=== PATIENT | female | born 1980 | race Caucasian/White ===

== ENCOUNTER 2017-11-02 14:00 | Inpatient (IN) ==
[2017-11-02] MEDS ORDERED: NS 1,000 ML IV ONE ×2 (14:16→15:44)
[2017-11-02] MEDS ORDERED: CEFEPIME 1 GM in NS 100 ML IV ONE (14:16)
--- NOTE | 2017-11-02 14:21 | Emergency Department Report ---
General Adult HPI - General Chief complaint: Back Pain/Injury Stated complaint: back pain Time Seen by Provider: 11/02/17 14:15 Source: patient, family, EMS Mode of arrival: EMS Limitations: physical limitation - History of Present Illness HPI narrative: Patient is a 37-year-old female history of cerebral palsy. Patient lives at home with her parents or caregivers. Patient presents to the ER for evaluation of fever, hypotension, severe back pain, nausea, vomiting. Patient has been in her usual state of good health, today was complaining of some back pain also had some nausea and vomiting. Patient was helped back to bed by her family then suddenly complained of severe back pain and at that point became fairly nonverbal. EMS was called patient was brought to the ER for evaluation on arrival patient's temperature of 103.0 - Related Data Home Medications Medication Instructions Recorded Confirmed Divalproex Sodium [Depakote] 500 mg PO HS #4.5 09/23/11 11/02/17 Levothyroxine Tab [Synthroid] 75 mcg PO DAILY #0 09/23/11 11/02/17 Fenofibrate [Lipofen] 150 mg PO WS #1 cap 08/30/13 11/02/17 Baclofen [Lioresal] 20 mg PO HS 11/02/17 11/02/17 Baclofen [Lioresal] 40 mg PO QAM 11/02/17 11/02/17 LORazepam [Ativan] 1 mg PO TID PRN 11/02/17 11/02/17 Lacosamide [Vimpat] 200 mg PO BID 11/02/17 11/02/17 Loratadine [Claritin] 10 mg PO QAM 11/02/17 11/02/17 Naproxen 500 mg PO BID 11/02/17 11/02/17 Niacin [Niacin ER] 1,000 mg PO WS 11/02/17 11/02/17 Omeprazole 40 mg PO QAM 11/02/17 11/02/17 Psyllium Husk [Fiber Laxative] 0.52 gm PO BID 11/02/17 11/02/17 Quetiapine [Seroquel] 50 mg PO HS 11/02/17 11/02/17 Sertraline [Zoloft] 200 mg PO QAM 11/02/17 11/02/17 levETIRAcetam [Keppra] 2,000 mg PO BID 11/02/17 11/02/17 Previous Rx's Medication Instructions Recorded Ferrous Sulfate [Slow Fe] 142 mg PO BIDWM #60 tablet.er 11/08/17 Levofloxacin Pb [Levaquin 750 mg 750 mg PO Q24H #3 tab 11/08/17 Premix] Allergies Allergy/AdvReac Type Severity Reaction Status Date / Time No Known Allergies Allergy Verified 11/02/17 14:33 Review of Systems Constitutional: Reports: fever. Denies: chills, weakness Eyes: Denies: eye pain, eye discharge, vision change Cardiovascular: Denies: chest pain, palpitations, dyspnea on exertion Respiratory: Denies: cough, dyspnea, wheezes Gastrointestinal: Reports: nausea, vomiting. Denies: abdominal pain Genitourinary: Denies: dysuria, frequency Musculoskeletal: Reports: back pain Neurological: Denies: headache PFSH Patient Stated Medical History Seizures Yes - Social History Smoking status: Never smoker Substance use type: does not use Alcohol intake frequency: does not drink Physical Exam - Limitations Limitations: altered mental status - General General appearance: alert, in distress - Head Head exam: normocephalic - Eye Eye exam: Present: PERRL - ENT ENT exam: Present: normal oropharynx, mucous membranes moist, TM's normal bilaterally - Chest Chest inspection: Present: symmetric chest wall rise. Absent: tenderness - Respiratory Respiratory exam: Present: crackles. Absent: respiratory distress, wheezes, stridor - Cardiovascular Cardiovascular exam: Present: normal rhythm, tachycardia, normal heart sounds - Abdominal Exam Abdominal exam: Present: soft, normal bowel sounds. Absent: distention, tenderness - Skin Skin exam: Present: warm, dry Course Vital Signs Temperature 103.2 F H 11/02/17 14:00 Pulse Rate 133 H 11/02/17 14:00 Respiratory Rate 25 H 11/02/17 14:00 Blood Pressure 152/76 H 11/02/17 14:00 Pulse Oximetry 88 L 11/02/17 14:00 Temperature 98.2 F 11/08/17 16:00 Pulse Rate 95 11/08/17 16:00 Respiratory Rate 18 11/08/17 16:00 Blood Pressure 165/105 H 11/08/17 16:00 Pulse Oximetry 95 11/08/17 16:00 Medical Decision Making - MDM Narrative Medical decision making narrative: Patient with fever, tachycardia low white count episode of hypotension, CONSISTENT with severe sepsis, also hydronephrosis did kidney stone and possible aspiration pneumonia Was able to contact Dr. Hartmannwho would be able to stent patient tomorrow for her kidney stone Discussed with Dr. Reyes, primary medical physician, patient is received cefepime in the emergency department, fluid resuscitation. He will admit patient to the CCU, he is aware that Dr. Hartmann will be available tomorrow for the kidney stone - Medical Records Medical records reviewed: Yes: I reviewed the patient's medical records. - Lab Data Lab results reviewed: Yes: I reviewed the patient's lab results. Result diagrams: 11/08/17 04:18 11/08/17 04:18 Lab Results 11/02/17 11/02/17 11/02/17 Range/Units 14:30 14:30 14:39 WBC 1.4 L* (4.5-11.0) T/MM3 RBC 4.63 (4.00-5.20) M/MM3 Hgb 10.8 L (12-16) GM/DL Hct 34.9 L (36-46) % MCV 75.4 L (80-100) UM3 MCH 23.3 L (26-34) UUG MCHC 30.9 L (31-37) GM/DL RDW Std Deviation 42.2 (36.9-50.2) FL Plt Count 138 (130-400) T/MM3 MPV 10.0 (9.4-12.4) UM3 Immature Gran % (Auto) Not performed Neut % (Auto) Not performed Lymph % (Auto) Not performed [place] % (Auto) Not performed Eos % (Auto) Not performed Baso % (Auto) Not performed Neut # (Auto) Not performed Lymph # (Auto) Not performed [place] # (Auto) Not performed Eos # (Auto) Not performed Baso # (Auto) Not performed Abs Immat Gran (auto) Not performed Neutrophils % (Manual) 50.0 (33-66) % Band Neutrophils % 28.0 H (0-6) % Lymphocytes % (Manual) 18.0 L (23-45) % Monocytes % (Manual) 4.0 (0-9.0) % Neutrophils # (Manual) 0.7 L (1.8-7.7) T/MM3 Band Neutrophils # 0.4 T/MM3 Lymphocytes # (Manual) 0.3 L (1-4.8) T/MM3 Monocytes # (Manual) 0.1 (0-0.8) T/MM3 Microcytosis 1+ RBC Morph Comment Abnormal Turbidity < 20 (0-20) Sodium 153 H (136-146) MEQ/L Potassium 4.1 (3.6-5) MEQ/L Chloride 108 H (98-107) MEQ/L Carbon Dioxide 18 L (22-30) MEQ/L Anion Gap 27 H (5-15) meq/L BUN 40.0 H (7-17) MG/DL Creatinine 1.9 H (0.7-1.2) mg/dL Estimated Creat Clear 35 (>50) mL/min GFR Calculation 30 (>60) mL/min BUN/Creatinine Ratio 21 (6-26) RATIO Glucose 187 H (65-110) MG/DL Calculated Osmolality 309 H (261-280) MOSM/KG Calcium 10.3 H (8.4-10.2) MG/DL Total Bilirubin 1.60 H (0.20-1.30) MG/DL Icterus Index < 2 (0-7) AST 60 H (14-36) U/L ALT 42 H (1-35) U/L Alkaline Phosphatase 75 (38-126) U/L Total Protein 9.1 H (6.3-8.2) g/dL Albumin 5.0 (3.5-5.0) g/dL Globulin 4.1 H (2.4-3.6) G/DL Albumin/Globulin Ratio 1.2 (1.1-2.2) RATIO Plasma Lactate 3.6 H (0.6-2.2) MMOL/L Specimen Hemolysis 26 H (0-25) Ur Collection Type Urine, cath straight Urine Color Yellow (YELLOW) Urine Clarity Sl cloudy Urine pH 5.0 (5.0-8.0) Ur Specific [place] >=1.030 H (1.015-1.025) Urine Protein 2+ A (NEGATIVE) Urine Glucose (UA) Negative (NEGATIVE) Urine Ketones Negative (NEGATIVE) Urine Occult Blood 2+ A (NEGATIVE) Urine Nitrate Negative (NEGATIVE) Urine Bilirubin 1+ A (NEGATIVE) Urine Urobilinogen 4.0 A (NORMAL) EU/DL Ur Leukocyte Esterase Trace A (NEGATIVE) Urine RBC 3-5 H (0-3) /HPF Urine WBC 1-3 (0-5) /HPF Ur Squamous Epith Cells 0-5 Amorphous Sediment Many Urine Bacteria 2+ H (NEGATIVE) Ur Culture Indicated? Cult not indicated Urine Test (Negative) 11/02/17 Range/Units 14:39 WBC (4.5-11.0) T/MM3 RBC (4.00-5.20) M/MM3 Hgb (12-16) GM/DL Hct (36-46) % MCV (80-100) UM3 MCH (26-34) UUG MCHC (31-37) GM/DL RDW Std Deviation (36.9-50.2) FL Plt Count (130-400) T/MM3 MPV (9.4-12.4) UM3 Immature Gran % (Auto) Neut % (Auto) Lymph % (Auto) [place] % (Auto) Eos % (Auto) Baso % (Auto) Neut # (Auto) Lymph # (Auto) [place] # (Auto) Eos # (Auto) Baso # (Auto) Abs Immat Gran (auto) Neutrophils % (Manual) (33-66) % Band Neutrophils % (0-6) % Lymphocytes % (Manual) (23-45) % Monocytes % (Manual) (0-9.0) % Neutrophils # (Manual) (1.8-7.7) T/MM3 Band Neutrophils # T/MM3 Lymphocytes # (Manual) (1-4.8) T/MM3 Monocytes # (Manual) (0-0.8) T/MM3 Microcytosis RBC Morph Comment Turbidity (0-20) Sodium (136-146) MEQ/L Potassium (3.6-5) MEQ/L Chloride (98-107) MEQ/L Carbon Dioxide (22-30) MEQ/L Anion Gap (5-15) meq/L BUN (7-17) MG/DL Creatinine (0.7-1.2) mg/dL Estimated Creat Clear (>50) mL/min GFR Calculation (>60) mL/min BUN/Creatinine Ratio (6-26) RATIO Glucose (65-110) MG/DL Calculated Osmolality (261-280) MOSM/KG Calcium (8.4-10.2) MG/DL Total Bilirubin (0.20-1.30) MG/DL Icterus Index (0-7) AST (14-36) U/L ALT (1-35) U/L Alkaline Phosphatase (38-126) U/L Total Protein (6.3-8.2) g/dL Albumin (3.5-5.0) g/dL Globulin (2.4-3.6) G/DL Albumin/Globulin Ratio (1.1-2.2) RATIO Plasma Lactate (0.6-2.2) MMOL/L Specimen Hemolysis (0-25) Ur Collection Type Urine Color (YELLOW) Urine Clarity Urine pH (5.0-8.0) Ur Specific [place] (1.015-1.025) Urine Protein (NEGATIVE) Urine Glucose (UA) (NEGATIVE) Urine Ketones (NEGATIVE) Urine Occult Blood (NEGATIVE) Urine Nitrate (NEGATIVE) Urine Bilirubin (NEGATIVE) Urine Urobilinogen (NORMAL) EU/DL Ur Leukocyte Esterase (NEGATIVE) Urine RBC (0-3) /HPF Urine WBC (0-5) /HPF Ur Squamous Epith Cells Amorphous Sediment Urine Bacteria (NEGATIVE) Ur Culture Indicated? Urine Test Negative (Negative) - Radiology Data Radiology results reviewed: Yes: I reviewed the patient's radiology results. CT lumbar spine: Large left-sided kidney stone with hydronephrosis Chest x-ray: Questionable aspiration pneumonitis right lower lobe Disposition Clinical Impression: Sepsis, Aspiration pneumonia [place]: [place] [facility] [place] Condition: Stable - Seen By: physician
[2017-11-02] MEDS ORDERED: MORPHINE SULFATE 4mg INJECTION IVP ONE (14:55)
[2017-11-02] MEDS: SALINE FLUSH 10ml SYRINGE IVF PRN (15:02)
--- NOTE | 2017-11-02 15:16 | XRay Report ---
Indication: fever possible aspiration sepsis PROCEDURE: XR chest 1V: Encounter: Initial Comparison: August 30, 2013 Findings: Chronic hypoinflation of the lungs. New airspace disease in the right lower lobe with increased linear markings. No gross pleural effusion or pneumothorax. Left-sided nerve stimulator device is new. Left-sided [employer] shunt catheter tubing again seen. Thoracolumbar spinal fixation rods are redemonstrated. Heart size is somewhat poorly evaluated due to the hypoinflation and patient rotation present. Mediastinal contours are grossly stable from the comparison. Pulmonary vascularity is not obviously enlarged. Impression: Right lower lobe airspace disease could be due to aspiration or pneumonia. .
--- NOTE | 2017-11-02 16:03 | CT Scan Report ---
Indication: fall, rods, question fracture PROCEDURE: CT lumbar spine wo con: Encounter: Initial Comparison: None Technique: Axial noncontrast CT imaging of the lumbar spine was performed with coronal and sagittal two-dimensional reformats. Automated Exposure Control and Iterative Reconstruction dose reducing techniques were utilized. FINDINGS: Severe scoliotic curvature is noted with extensive posterior spinal fusion rods. Mild diffuse bony demineralization. There is no acute lumbar fracture identified. Screws extend into the sacrum and iliac bones bilaterally. Significant metallic streak artifact. There is left hydronephrosis and hydroureter due to a stone or possibly two adjacent stones in the proximal ureter measuring 9 x 3 x 3 mm. This is at the L3 level. There is mild perinephric and periureteral stranding. High attenuation material seen at the L3 level in the epidural space and central canal. Partial osseous fusion across all lumbar disk spaces. Impression: Obstructing left proximal ureteral stones. No acute fracture. .
[2017-11-02] MEDS: NS 1,000 ML IV SCH (17:02)
[2017-11-02 18:15] VITALS: BMI 30.3
[2017-11-02] MEDS ORDERED: ONDANSETRON 4 MG/2 ML INJECTION IVP PRN (18:43)
[2017-11-02] MEDS ORDERED: PROMETHAZINE 25 MG INJECTION IVP PRN (18:44)
[2017-11-02] MEDS: MORPHINE SULFATE 2mg INJECTION IVP PRN ×2 (20:42→22:46)
[2017-11-02] MEDS ORDERED: LACOSAMIDE 100mg TABLET PO SCH (21:00)
[2017-11-02] MEDS ORDERED: LEVETIRACETAM 500 MG TABLET PO SCH (21:00)
[2017-11-02] MEDS ORDERED: LACOSAMIDE 200 MG in NS 50 ML IV SCH (21:00)
--- NOTE | 2017-11-02 21:04 | Internal Med History&Physical ---
Internal Medicine HPI Chief complaint: severe back pain with sepsis History of present illness: Leti is very pleasant 37-year-old white female with cerebral palsy. She lives at home with her parents and they function as her caregivers. Her father indicates that over the weekend she had a few episodes of dry heaves and abdominal cramping possibly consistent with gastroenteritis. However, this morning she was sitting at her computer and complained of sudden back pain. She wanted to lay down and her father helped her lie down and he went to massage her back where she said she hurt. At that point she had sudden and severe back pain. She was unable to respond verbally at that point and he called 911 and they transferred her to the ER. Upon arrival her temperature was greater than 103, her white count was below 2, she was in a significant metabolic acidosis with an elevated lactic acid level. Her blood pressure did drop to 86/63 at one point. She was given IV fluid bolus and started on cefepime 1 g IV. Urology was consulted, and she was admitted to the ICU. Review of Systems ROS unobtainable: other (provided by her parents) - Constitutional Constitutional: Present: fever(s), weakness - Gastrointestinal Gastrointestinal: Present: abdominal pain, nausea, vomiting. Absent: change in bowel habits, coffee ground emesis, constipation, diarrhea, dysphagia, hematemesis, hematochezia, melena - Neurological Neurological: Present: abnormal speech, convulsions (history of seizure disorder ) Neurological Comments: Cerebral palsy [facility] Patient Stated Medical History Seizures Yes - Social History Smoking status: Never smoker Substance use type: does not use Housing: house Medications Home Medications Medication Instructions Recorded Confirmed Type Divalproex Sodium [Depakote] 500 mg PO HS #4.5 09/23/11 11/02/17 History Levothyroxine Tab [Synthroid] 75 mcg PO DAILY #0 09/23/11 11/02/17 History Fenofibrate [Lipofen] 150 mg PO WS #1 cap 08/30/13 11/02/17 History Baclofen [Lioresal] 20 mg PO HS 11/02/17 11/02/17 History Baclofen [Lioresal] 40 mg PO QAM 11/02/17 11/02/17 History LORazepam [Ativan] 1 mg PO TID PRN 11/02/17 11/02/17 History Lacosamide [Vimpat] 200 mg PO BID 11/02/17 11/02/17 History Loratadine [Claritin] 10 mg PO QAM 11/02/17 11/02/17 History Naproxen 500 mg PO BID 11/02/17 11/02/17 History Niacin [Niacin ER] 1,000 mg PO WS 11/02/17 11/02/17 History Omeprazole 40 mg PO QAM 11/02/17 11/02/17 History Psyllium Husk [Fiber Laxative] 0.52 gm PO BID 11/02/17 11/02/17 History Quetiapine [Seroquel] 50 mg PO HS 11/02/17 11/02/17 History Sertraline [Zoloft] 200 mg PO QAM 11/02/17 11/02/17 History levETIRAcetam [Keppra] 2,000 mg PO BID 11/02/17 11/02/17 History Allergies Allergy/AdvReac Type Severity Reaction Status Date / Time No Known Allergies Allergy Verified 11/02/17 14:33 Exam Vital signs: Temperature 96.8 F 11/02/17 18:10 Pulse Rate 101 H 11/02/17 19:30 Respiratory Rate 34 H 11/02/17 20:42 Blood Pressure 131/86 11/02/17 19:30 Pulse Oximetry 97 11/02/17 19:30 - Constitutional obtunded - Routine HEENT Exam Head: Present: normocephalic, atraumatic Eye: Present: EOMI, PERRL ENT: Present: mucous membranes moist, oropharynx clear, nares patent Nose: moist mucous membranes - Routine Neck Exam Present: supple. Absent: carotid bruit, lymphadenopathy, thyromegaly - Routine Chest/Breast/Axilla Exam Chest wall: Absent: tenderness Axillae: Absent: lymphadenopathy - Routine Respiratory Exam Present: CTA bilaterally. Absent: rhonchi, wheezes, crackles - Routine Cardiovascular Exam Present: no murmur, tachycardia. Absent: S3, S4 - Routine Abdominal Exam Present: soft, normoactive bowel sounds. Absent: distended, rebound, guarding - Routine Extremities Exam Absent: cyanosis, clubbing, edema - Routine Skin Exam Present: intact. Absent: cyanosis, erythema, mottling, petechiae, urticaria, jaundice - Routine Neurological Exam Present: altered mental status. Absent: alert, oriented X3 - Routine Psychiatric Exam Present: agitated, unable to assess Internal Medicine Results - Labs CBC & Chem 7: 11/02/17 14:30 11/02/17 14:30 Labs: Short CBC 11/02/17 Range/Units 14:30 WBC 1.4 L* (4.5-11.0) T/MM3 Hgb 10.8 L (12-16) GM/DL Hct 34.9 L (36-46) % Plt Count 138 (130-400) T/MM3 BMP 11/02/17 14:30 Sodium 153 H Potassium 4.1 Chloride 108 H Carbon Dioxide 18 L BUN 40.0 H Creatinine 1.9 H Glucose 187 H Calcium 10.3 H Liver Function 11/02/17 Range/Units 14:30 Total Bilirubin 1.60 H (0.20-1.30) MG/DL AST 60 H (14-36) U/L ALT 42 H (1-35) U/L Alkaline Phosphatase 75 (38-126) U/L Albumin 5.0 (3.5-5.0) g/dL Urine 11/02/17 Range/Units 14:39 Urine Color Yellow (YELLOW) Urine Clarity Sl cloudy Urine pH 5.0 (5.0-8.0) Ur Specific [place] >=1.030 H (1.015-1.025) Urine Protein 2+ A (NEGATIVE) Urine Glucose (UA) Negative (NEGATIVE) - Imaging and Cardiology Chest x-ray Status: image reviewed by me Assessment and Plan - Assessment and Plan (1) Septic shock Current visit: Yes Status: Acute (2) Hydronephrosis Current visit: Yes Status: Acute (3) Cerebral palsy Current visit: Yes Status: Acute (4) Seizure disorder Current visit: Yes Status: Acute (5) Renal calculus Current visit: Yes Status: Acute (6) Mental status change Current visit: Yes Status: Acute (7) Elevated liver enzymes Current visit: Yes Status: Acute (8) Metabolic acidosis with increased anion gap and accumulation of organic acids Current visit: Yes Status: Acute - Assessment and Plan Patient is in the ICU. She has been started on IV fluid hydration with IV fluid boluses. Her lactic acid has already resolved. Her seizure medications have been changed to IV. Urology consultation for renal calculus management has been obtained. I will continue her on morphine for pain relief tonight.
[2017-11-02] MEDS: QUETIAPINE 50 MG TABLET PO SCH (21:21)
[2017-11-02] MEDS: BACLOFEN 20 MG TABLET PO SCH (21:21)
[2017-11-02] MEDS: DIVALPROEX 500 MG TABLET PO SCH (21:21)
[2017-11-02] MEDS ORDERED: CEFEPIME 1 GM in NS 100 ML IV SCH (22:00)
[2017-11-02] MEDS: LEVETIRACETAM IV SCH (22:24)
[2017-11-02] MEDS: NS IV SCH (22:24)
[2017-11-02] MEDS ORDERED: MORPHINE SULFATE 2mg INJECTION IVP ONE (23:20)
[2017-11-03] MEDS: CEFEPIME 2 GM in NS 100 ML IV SCH ×3 (00:04→15:11)
[2017-11-03] MEDS: MORPHINE SULFATE 2mg INJECTION IVP PRN ×3 (01:59→19:34)
[2017-11-03] MEDS: NS 1,000 ML IV SCH (03:08)
[2017-11-03] MEDS: OMEPRAZOLE 20 MG CAPSULE PO SCH (06:42)
[2017-11-03] MEDS ORDERED: IOHEXOL 300mg/ml 50ml INJECTION ONE (07:07)
[2017-11-03] MEDS ORDERED: PROPOFOL 500 MG/50 ML VIAL ONE (07:09)
--- NOTE | 2017-11-03 07:12 | Anesthesia Preoperative Report ---
Anesthesia Preoperative Record - Date and Time Date: 11/03/17 Preoperative Diagnosis: Sepsis Aspiration pneumonia right 9 mm stone left NPO Since Date: 11/02/17 NPO Since Time: 23:00 Allergies/Adverse Reactions: Allergies Allergy/AdvReac Type Severity Reaction Status Date / Time No Known Allergies Allergy Verified 11/02/17 14:33 - Vital Signs Vital Signs: Temperature 98.3 F 11/03/17 01:02 Pulse Rate 135 H 11/03/17 05:45 Respiratory Rate 22 11/03/17 06:12 Blood Pressure 124/73 11/03/17 05:45 Pulse Oximetry 94 11/03/17 05:45 Height and Weight: Height 4 ft 10 in Weight 65.9 kg Body Mass Index 30.3 - Medications Inpatient Medications: Current Medications Baclofen (Lioresal) 20 mg PO HS [facility] Last Admin: 11/02/17 21:21 Dose: Not Given Baclofen (Lioresal) 40 mg PO QAM AP Divalproex Sodium (Depakote) 500 mg PO [facility] Last Admin: 11/02/17 21:21 Dose: Not Given Sodium Chloride (Normal Saline) 1,000 mls @ 125 mls/hr IV .Q8H [facility] Last Infusion: 11/03/17 05:00 Dose: 125 mls/hr Cefepime HCl 2 gm/ Sodium (Chloride) 100 mls @ 200 mls/hr IV Q8H [facility] Last Infusion: 11/03/17 00:36 Dose: Infused Levetiracetam 2,000 mg/ Sodium (Chloride) 120 mls @ 400 mls/hr IV Q12H [facility] Last Infusion: 11/02/17 22:44 Dose: Infused Lacosamide 200 mg/ Sodium (Chloride) 70 mls @ 100 mls/hr IV Q12H [facility] Morphine Sulfate (Morphine Sulf 2 Mg Inj) 1 - 2 mg IVP Q2H PRN PRN Reason: Pain Last Admin: 11/03/17 06:12 Dose: 2 mg Omeprazole (Prilosec) 40 mg PO [facility] Last Admin: 11/03/17 06:42 Dose: Not Given Ondansetron HCl (Zofran) 4 mg IVP Q6H PRN PRN Reason: Nausea &/or vomiting Promethazine HCl (Phenergan Inj) 25 mg IVP Q6H PRN Quetiapine Fumarate (Seroquel) 50 mg PO [facility] Last Admin: 11/02/17 21:21 Dose: Not Given Sertraline HCl (Zoloft) 200 mg PO [facility] Sodium Chloride (Iv Flush) 10 - 80 ml IVF PRN PRN PRN Reason: Flushing Last Admin: 11/02/17 15:02 Dose: 20 ml Home Medications: Home Medications Medication Instructions Recorded Confirmed Type Divalproex Sodium [Depakote] 500 mg PO HS #4.5 09/23/11 11/02/17 History Levothyroxine Tab [Synthroid] 75 mcg PO DAILY #0 09/23/11 11/02/17 History Fenofibrate [Lipofen] 150 mg PO WS #1 cap 08/30/13 11/02/17 History Baclofen [Lioresal] 20 mg PO HS 11/02/17 11/02/17 History Baclofen [Lioresal] 40 mg PO QAM 11/02/17 11/02/17 History LORazepam [Ativan] 1 mg PO TID PRN 11/02/17 11/02/17 History Lacosamide [Vimpat] 200 mg PO BID 11/02/17 11/02/17 History Loratadine [Claritin] 10 mg PO QAM 11/02/17 11/02/17 History Naproxen 500 mg PO BID 11/02/17 11/02/17 History Niacin [Niacin ER] 1,000 mg PO WS 11/02/17 11/02/17 History Omeprazole 40 mg PO QAM 11/02/17 11/02/17 History Psyllium Husk [Fiber Laxative] 0.52 gm PO BID 11/02/17 11/02/17 History Quetiapine [Seroquel] 50 mg PO 11/02/17 11/02/17 History Sertraline [Zoloft] 200 mg PO QAM 11/02/17 11/02/17 History levETIRAcetam [Keppra] 2,000 mg PO BID 11/02/17 11/02/17 History Is Patient on Beta Marisol?: No - Medical History Respiratory: Reports: Pneumonia (possible) Cardiovascular: Reports: High Cholesterol Gastrointestional: DENIES: Gastroesophageal Reflux Disease Neuro/Musculoskeletal: Reports: Back Problems, Neuromuscular Disorder, Seizures (2 in last week, none since february before that) Other History: DENIES: Anesthesia Reactions - Surgical History Musculoskeletal Surgery/Tx: Reports: Other (hip, back) Anesthesia Reactions: None Hx Family Anesthesia Reaction: No History of Motion Sickness: No - Social History Smoking Status: Never smoker Substance Use Type: does not use - Pertinent Findings Laboratory: CBC and BMP 11/03/17 04:43 11/03/17 04:43 BMP 11/02/17 11/03/17 14:30 04:43 Sodium 153 H 151 H Potassium 4.1 3.3 L D Chloride 108 H 121 H D Carbon Dioxide 18 L 15 L BUN 40.0 H 40.0 H Creatinine 1.9 H 1.6 H D Glucose 187 H 136 H Calcium 10.3 H 7.6 L D Liver Function 11/02/17 11/03/17 Range/Units 14:30 04:43 Total Bilirubin 1.60 H 1.30 (0.20-1.30) MG/DL AST 60 H 40 H (14-36) U/L ALT 42 H 29 (1-35) U/L Alkaline Phosphatase 75 73 (38-126) U/L Albumin 5.0 3.5 (3.5-5.0) g/dL Urine 11/02/17 Range/Units 14:39 Urine Color Yellow (YELLOW) Urine Clarity Sl cloudy Urine pH 5.0 (5.0-8.0) Ur Specific [place] >=1.030 H (1.015-1.025) Urine Protein 2+ A (NEGATIVE) Urine Glucose (UA) Negative (NEGATIVE) EKG: Sinus Tachycardia - Airway Assessment Mallampati Score: III TMD: 3 Fingerbreadths Neck Extension: fair Overall Assessment: may be difficult mask vent, may be difficult intubation - ASA ASA Score: 3 - Plan Anesthesia: General Inhalation Gases - Discussion Discussion: Discussed risks/options/alternatives of anesthesia and questions answered. Patient consents. Nursing pain assessment noted. Present for Discussion: parent (father) Attestation Statement: Prior to the delivery of any anesthetic medication, I examined the patient, developed the plan, obtained the patient's consent and discussed the risk and benefits of the procedure with the patient/guardian. - Additional Information Seen by Anesthesia: Yes
[2017-11-03] MEDS ORDERED: IOHEXOL 300mg/ml 50ml INJECTION OPSITE ONE (07:30)
--- NOTE | 2017-11-03 08:53 | XRay Report ---
Indication: Septic PROCEDURE: XR chest 1V: Encounter: Initial Comparison: November 02, 2017 Findings: Lungs remain hypoinflated with slightly improved aeration of the right lower lobe and hazy bilateral airspace opacities remaining. No gross pneumothorax or large effusion. Cardiomediastinal contours are difficult to evaluate given the scoliosis and rotation present. Pulmonary vascularity is not overtly enlarged. Impression: Slightly improved aeration of the right lower lobe. .
[2017-11-03] MEDS ORDERED: NON-FORMULARY MEDICATION 1 EACH EACH (Omeprazole [Omeprazole] 40 MG) PO SCH (09:00)
--- NOTE | 2017-11-03 09:23 | Operative Note ---
DATE OF OPERATION 11/03/2017 PREOPERATIVE DIAGNOSIS 1. Left ureteral stone. 2. Left obstructive pyelonephritis. 3. Urosepsis. POSTOPERATIVE DIAGNOSIS 1. Left ureteral stone. 2. Left obstructive pyelonephritis. 3. Urosepsis. OPERATION PERFORMED 1. Cystoscopy. Left retrograde pyelogram. 2. Left stent placement. SURGEON Alex Hartmann MD COMPLICATIONS None DRAINS 6 x 24 left double-J stent RADIOLOGIC FINDINGS Left retrograde pyelogram showed left moderate hydronephrosis. INDICATIONS FOR THE PROCEDURE This is a 37-year-old female with cerebral palsy who was admitted to [facility] last night for urosepsis. Imaging showed a 9 mm left obstructing ureteral stone with stranding around her kidney. I discussed the options with her father this morning and he elected to go to the operating room to place a stent. DESCRIPTION OF THE PROCEDURE Patient was identified in the preoperative holding area. The procedure was explained to her father and he agreed to proceed. She was taken back to the operating room where she was placed supine on the operating room table. General anesthesia was induced. She was then placed in the dorsal lithotomy position. Her genitalia were prepped and draped in the usual fashion. At this time, a formal time-out was done, all the persons in the room were in agreement. I began the procedure by introducing a rigid cystoscope inside the bladder. Upon entry to the bladder, I identified the two ureteral orifices that were orthotopic in position. A wire was placed in the left ureteral orifice and under fluoro guidance, advanced to the level of the left kidney. I then placed a 5-Afghan over the wire and advanced it to the level of the left kidney. Once I was in the left kidney, I removed the wire and I aspirated about 10 mL of purulent urine from the left kidney. This was sent for culture. I then shot a left retrograde pyelogram that showed moderate left hydronephrosis. The wire was then replaced in the kidney. The 5-Afghan was removed. A 6 x 24 double-J stent was placed over the wire under fluoro guidance and was advanced to the level of the left kidney. I then removed the wire and observed a nice curl of the stent in the kidney and in the bladder. I noted efflux of significant amount of pus from the stent at the end of the procedure. A 16-Afghan Jacobsen was placed in the bladder. This concluded the procedure. DISPOSITION Patient will be transferred back to the ICU. She will need definitive treatment for her stone once she recovers from the infection, in 2-3 weeks. JERMAN
[2017-11-03] MEDS ORDERED: 1/2 NS with KCL 20mEq 1,000 ML IV SCH (09:30)
--- NOTE | 2017-11-03 09:51 | Anesthesia Postoperative Note ---
- Date and Time Date: 11/03/17 Time: 09:50 - Status Patient Participated in Evaluation: Other (pt minimally responsive- at preop baseline) Vital Signs: Temperature 100.3 F 11/03/17 08:57 Pulse Rate 127 H 11/03/17 09:00 Respiratory Rate 12 11/03/17 08:55 Blood Pressure 117/64 11/03/17 08:55 Pulse Oximetry 96 11/03/17 08:55 Respiratory Function: Airway Patent Cardiovascular Function: Regular Pulse EKG: Sinus Rhythm Pain Intensity: 0 Hydration: IV Infusing Nausea/Vomiting: None Complications During Recover: None Apparent - Follow-Up Instructions Instructions: Per Surgeon
[2017-11-03] MEDS: MAGNESIUM SULFATE 1gm PREMIX 1 GM/100 ML BAG IV SCH ×4 (09:53→13:01)
--- NOTE | 2017-11-03 10:58 | Remote Fluorsocopy Report ---
Indication: LEFT RETRO/STENT INSERTION PROCEDURE: RF retrograde pyelogram LT: Encounter: Initial Comparison: Lumbar spine CT from yesterday Findings: Four fluoroscopic spot images are submitted for interpretation. Images show contrast injection into the left renal collecting system which shows minimal blunting of an upper pole calyx. A double-J stent is then placed. Impression: Fluoroscopy as above. Fluoroscopy time is 11 seconds. Fluoroscopy dose is 363.9 mRad. .
--- NOTE | 2017-11-03 11:38 | XRay Report ---
Indication: picc insertion PROCEDURE: XR chest 1V: Encounter: Initial Comparison: November 03, 2017 at 0606 Findings: Multiple overlying monitoring leads. New right PICC line in place with the tip projecting over the lower SVC. Lung steele are stable. No pneumothorax. Cardiomediastinal contours are stable. New left-sided double-J stent. Impression: New right PICC line as above. .
[2017-11-03] MEDS: LACOSAMIDE 200 MG in NS 50 ML IV SCH ×2 (11:45→23:00)
[2017-11-03] MEDS: LEVETIRACETAM IV SCH ×2 (12:28→22:25)
[2017-11-03] MEDS: NS IV SCH ×2 (12:28→22:25)
[2017-11-03] MEDS: SERTRALINE 100 MG TABLET PO SCH (15:12)
[2017-11-03] MEDS: BACLOFEN 20 MG TABLET PO SCH ×2 (15:12→21:22)
[2017-11-03] MEDS: 1/2 NS IV SCH (15:48)
[2017-11-03] MEDS: POTASSIUM CHLORIDE IV SCH (15:48)
[2017-11-03] MEDS: SODIUM BICARBONATE IV SCH (15:48)
[2017-11-03] MEDS: DIVALPROEX 500 MG TABLET PO SCH (21:23)
[2017-11-03] MEDS: QUETIAPINE 50 MG TABLET PO SCH (21:23)
[2017-11-04] MEDS: CEFEPIME 2 GM in NS 100 ML IV SCH ×3 (00:25→15:19)
[2017-11-04] MEDS: POTASSIUM CHLORIDE IV SCH (02:39)
[2017-11-04] MEDS: SODIUM BICARBONATE IV SCH (02:39)
[2017-11-04] MEDS: 1/2 NS IV SCH (02:39)
[2017-11-04] MEDS: OMEPRAZOLE 20 MG CAPSULE PO SCH (08:07)
[2017-11-04] MEDS: SERTRALINE 100 MG TABLET PO SCH (09:40)
[2017-11-04] MEDS: BACLOFEN 20 MG TABLET PO SCH ×2 (09:40→21:07)
[2017-11-04] MEDS ORDERED: FUROSEMIDE 40 MG/4 ML INJECTION IVP SCH (10:15)
[2017-11-04] MEDS: D5-1/2NS with KCL 20mEq 1,000 ML IV SCH (10:24)
[2017-11-04] MEDS: LEVETIRACETAM IV SCH ×2 (10:30→22:26)
[2017-11-04] MEDS: NS IV SCH ×2 (10:30→22:26)
[2017-11-04] MEDS: ALBUTEROL/IPRATROPIUM 2.5mg-0.5mg/3ml NEB AEROSOL SCH ×3 (11:31→20:16)
[2017-11-04] MEDS: LACOSAMIDE 200 MG in NS 50 ML IV SCH ×2 (11:43→22:31)
[2017-11-04] MEDS ORDERED: BISACODYL 10 MG SUPPOSITORY RECTALLY ONE (17:14)
--- NOTE | 2017-11-04 17:18 | Internal Med Progress Note ---
Internal Medicine Subjective Patient seen and examined in the ICU. Parents are at the bedside. Questions answered. Discussed with nursing her condition in the course of events over the last day. Leti is still quite ill, however she appears to be improving nicely. She is starting to arouse a little bit. Especially to her parents' voices. Blood culture, urine culture, surgical micro-were all positive for Escherichia coli. Exam Vital Signs: Temperature 98.8 F 11/04/17 15:00 Pulse Rate 114 H 11/04/17 16:00 Respiratory Rate 24 11/04/17 16:11 Blood Pressure 118/77 11/04/17 14:00 Pulse Oximetry 96 11/04/17 16:11 Telemetry Rhythm: Sinus Tachycardia Height/Weight/BMI: Height 4 ft 10 in Weight 68.9 kg Body Mass Index 30.3 - Constitutional Present: moderate distress, obese, diaphoretic, obtunded - Routine HEENT Exam Head: Present: normocephalic, atraumatic Eye: Present: EOMI, PERRL. Absent: conjunctival icterus ENT: Present: mucous membranes moist - Routine Neck Exam Absent: lymphadenopathy, thyromegaly - Routine Cardiovascular Exam Present: tachycardia. Absent: S3, S4 - Routine Abdominal Exam Present: distended. Absent: soft, normoactive bowel sounds - Routine Extremities Exam Present: edema. Absent: cyanosis, clubbing - Routine Skin Exam Present: intact. Absent: cyanosis, erythema, mottling, petechiae, urticaria, jaundice - Routine Neurological Exam Present: altered mental status. Absent: alert, oriented X3 - Routine Psychiatric Exam Present: unable to assess Internal Medicine Results - Labs CBC & Chem 7: 11/04/17 09:08 11/04/17 09:08 Labs: Short CBC 11/04/17 Range/Units 09:08 WBC 5.2 D (4.5-11.0) T/MM3 Hgb 8.3 L (12-16) GM/DL Hct 27.4 L (36-46) % Plt Count 118 L (130-400) T/MM3 [facility] 11/03/17 11/04/17 20:38 09:08 Sodium 151 H 154 H Potassium 3.8 3.9 Chloride 121 H 124 H Carbon Dioxide 16 L 17 L BUN 34.0 H 26.0 H Creatinine 1.0 D 0.7 D Glucose 136 H 118 H Calcium 7.4 L 7.6 L Liver Function 11/04/17 Range/Units 09:08 Total Bilirubin 0.90 (0.20-1.30) MG/DL AST 47 H (14-36) U/L ALT 26 (1-35) U/L Alkaline Phosphatase 62 (38-126) U/L Albumin 3.2 L (3.5-5.0) g/dL Progress Note-A&P - Time Spent With Patient Total time spent is greater than 50% in coordination of care (as documented) at patient's floor/unit and/or counseling patient: greater than 35 minutes (1) Septic shock Status: Acute Current Visit: Yes (2) Bacteremia, escherichia coli Status: Acute Current Visit: Yes (3) Hydronephrosis Status: Acute Current Visit: Yes (4) Renal calculus Status: Acute Current Visit: Yes (5) Mental status change Status: Acute Current Visit: Yes (6) Elevated liver enzymes Status: Acute Current Visit: Yes (7) Metabolic acidosis with increased anion gap and accumulation of organic acids Status: Acute Current Visit: Yes (8) Seizure disorder Status: Acute Current Visit: Yes (9) Cerebral palsy Status: Acute Current Visit: Yes - Assessment and Plan Now that she's no longer in shock I will begin to diurese her with Lasix 40 mg every 12 hours. I will also change her antibiotics from cefepime to Levaquin once daily as the Escherichia coli is more sensitive to Levaquin and Levaquin is once daily so she will receive less volume. Hospital Course Summary Disclaimer: The visit summary below is not to be considered part of the above Progress Note.
[2017-11-04] MEDS: LEVOFLOXACIN PB 750 MG/150 ML BAG IV SCH (18:16)
[2017-11-04] MEDS: FUROSEMIDE 40 MG/4 ML INJECTION IVP SCH (21:03)
[2017-11-04] MEDS: DIVALPROEX 500 MG TABLET PO SCH (21:07)
[2017-11-04] MEDS: QUETIAPINE 50 MG TABLET PO SCH ×2 (21:08→22:01)
[2017-11-05] MEDS: ALBUTEROL/IPRATROPIUM 2.5mg-0.5mg/3ml NEB AEROSOL SCH ×4 (03:05→21:58)
[2017-11-05] MEDS: D5-1/2NS with KCL 20mEq 1,000 ML IV SCH ×2 (05:40→22:39)
--- NOTE | 2017-11-05 08:29 | XRay Report ---
Indication: Septic PROCEDURE: XR chest 1V: Encounter: Initial Comparison: November 03, 2017 Findings: Right PICC line remains in place. Increasing hazy opacities in the lungs, right greater than left. No pneumothorax. Multiple overlying leads obscuring portions of the chest. Cardiomediastinal contours are grossly stable. Impression: Developing airspace disease in the right lung. .
[2017-11-05] MEDS: FUROSEMIDE 40 MG/4 ML INJECTION IVP SCH ×2 (08:57→20:02)
[2017-11-05] MEDS: SERTRALINE 100 MG TABLET PO SCH (08:58)
[2017-11-05] MEDS: OMEPRAZOLE 20 MG CAPSULE PO SCH (08:58)
[2017-11-05] MEDS: BACLOFEN 20 MG TABLET PO SCH ×2 (08:58→21:19)
[2017-11-05] MEDS ORDERED: BISACODYL 10 MG SUPPOSITORY RECTALLY ONE (09:09)
[2017-11-05] MEDS: LEVETIRACETAM 500 MG TABLET PO SCH ×2 (09:36→21:18)
[2017-11-05] MEDS: LACOSAMIDE 100mg TABLET PO SCH ×2 (11:14→21:19)
--- NOTE | 2017-11-05 13:53 | Pharmacy Note - Antibiotics ---
Pharmacy - Antibiotic Therapy - Laboratory Information Laboratory 11/02/17 11/03/17 11/03/17 14:30 04:43 12:08 Creatinine 1.9 H 1.6 H D 1.4 H D 11/03/17 11/04/17 11/05/17 20:38 09:08 03:53 Creatinine 1.0 D 0.7 D 0.6 L - Antibiotic Information CULTURE AND SENSITIVITY REVIEW: Organism: E. Coli Site: Shaila/IV Antibiotic: Levaquin 750 mg iv every 24 hours (changed from cefepime). Sensitivity: M.I.C. = 0.12 (better than Cefepime's 1.0) Recommendation/Action: No changes in antibiotic therapy. Thanks, Jesus Alberto Ortega RPh.
--- NOTE | 2017-11-05 17:02 | Internal Med Progress Note ---
Internal Medicine Subjective Patient seen and examined in the ICU. Parents are at the bedside. Questions answered. Patient is much improved today. She is more awake although her tracking is still delayed. She is able to eat and drink and swallow her medications. I have changed her seizure medications back to oral from IV. All of her cultures including blood cultures urine culture and surgical micro-are positive for Escherichia coli sensitive to Levaquin. Her acidosis has resolved. Her kidney function has recently resolved. Her liver functions have improved almost normal. Exam Vital Signs: Temperature 98.4 F 11/05/17 14:00 Pulse Rate 112 H 11/05/17 16:00 Respiratory Rate 29 H 11/05/17 16:00 Blood Pressure 164/96 H 11/05/17 16:00 Pulse Oximetry 93 11/05/17 16:00 Telemetry Rhythm: Sinus Tachycardia Height/Weight/BMI: Height 4 ft 10 in Weight 63.3 kg Body Mass Index 30.3 - Constitutional Present: no acute distress, cooperative - Routine HEENT Exam Head: Present: normocephalic, atraumatic Eye: Absent: conjunctival icterus ENT: Present: mucous membranes moist, oropharynx clear, nares patent - Routine Neck Exam Present: supple. Absent: lymphadenopathy - Routine Chest/Breast/Axilla Exam Axillae: Absent: lymphadenopathy - Routine Respiratory Exam Present: accessory muscle use, wheezes (bilateral) - Routine Cardiovascular Exam Present: tachycardia. Absent: S3, S4 - Routine Abdominal Exam Present: soft, normoactive bowel sounds, non tender, distended (mild). Absent: rebound, guarding, rigid - Routine Extremities Exam Absent: cyanosis, clubbing, edema - Routine Skin Exam Present: intact. Absent: cyanosis, erythema, pallor, mottling, petechiae, urticaria, jaundice - Routine Neurological Exam Present: CN II-XII intact, altered mental status. Absent: oriented X3 - Routine Psychiatric Exam Present: cooperative. Absent: normal thought process, depressed, anxious Internal Medicine Results - Labs CBC & Chem 7: 11/05/17 03:53 11/05/17 03:53 Labs: Short CBC 11/05/17 Range/Units 03:53 WBC 6.0 (4.5-11.0) T/MM3 Hgb 8.7 L (12-16) GM/DL Hct 28.1 L (36-46) % Plt Count 129 L (130-400) T/MM3 BMP 11/05/17 03:53 Sodium 153 H Potassium 3.2 L Chloride 113 H D Carbon Dioxide 28 D BUN 18.0 H Creatinine 0.6 L Glucose 134 H Calcium 8.7 D Liver Function 11/05/17 Range/Units 03:53 Total Bilirubin 0.80 (0.20-1.30) MG/DL AST 39 H (14-36) U/L ALT 25 (1-35) U/L Alkaline Phosphatase 79 D (38-126) U/L Albumin 3.4 L (3.5-5.0) g/dL - Imaging and Cardiology Chest x-ray Status: image reviewed by me Progress Note-A&P - Time Spent With Patient Total time spent is greater than 50% in coordination of care (as documented) at patient's floor/unit and/or counseling patient: 25 - 35 minutes (1) Septic shock Status: Resolved Current Visit: Yes (2) Bacteremia, escherichia coli Status: Acute Assessment and plan: Escherichia coli sensitive to Levaquin. Current Visit: Yes (3) Hydronephrosis Status: Resolved Current Visit: Yes (4) Renal calculus Status: Acute Current Visit: Yes (5) Mental status change Status: Acute Current Visit: Yes (6) Elevated liver enzymes Status: Acute Current Visit: Yes (7) Metabolic acidosis with increased anion gap and accumulation of organic acids Status: Resolved Current Visit: Yes (8) Seizure disorder Status: Chronic Current Visit: Yes (9) Cerebral palsy Status: Chronic Current Visit: Yes - Assessment and Plan I will continue her on Levaquin at this time as well as her other medications. We will focus on increasing her activity and oral intake. I expect that she will continue to improve and that I can move her to the medical floor tomorrow. Hospital Course Summary Disclaimer: The visit summary below is not to be considered part of the above Progress Note.
[2017-11-05] MEDS: NALOXEGOL 12.5 MG TABLET PO SCH (17:33)
[2017-11-05] MEDS: LEVOFLOXACIN PB 750 MG/150 ML BAG IV SCH (17:48)
[2017-11-05] MEDS ORDERED: NAPROXEN 500 MG TABLET PO PRN (19:20)
[2017-11-05] MEDS ORDERED: SALINE 0.65% NASAL SPRAY 44 ML BOTTLE EA NOSTRIL PRN (19:22)
[2017-11-05] MEDS: DIVALPROEX 500 MG TABLET PO SCH (21:17)
[2017-11-05] MEDS: QUETIAPINE 50 MG TABLET PO SCH (21:19)
[2017-11-06] MEDS: ALBUTEROL/IPRATROPIUM 2.5mg-0.5mg/3ml NEB AEROSOL SCH ×4 (03:08→22:54)
[2017-11-06] MEDS ORDERED: ALTEPLASE (Cathflo*) 2mg INJECTION IV ONE ×2 (04:01)
[2017-11-06] MEDS: FUROSEMIDE 40 MG/4 ML INJECTION IVP SCH (10:51)
[2017-11-06] MEDS: OMEPRAZOLE 20 MG CAPSULE PO SCH (10:52)
[2017-11-06] MEDS: LACOSAMIDE 100mg TABLET PO SCH ×2 (10:52→21:28)
[2017-11-06] MEDS: LEVOTHYROXINE 75 MCG TABLET PO SCH (10:53)
[2017-11-06] MEDS: LEVETIRACETAM 500 MG TABLET PO SCH ×2 (10:53→21:28)
[2017-11-06] MEDS: SERTRALINE 100 MG TABLET PO SCH (10:54)
[2017-11-06] MEDS: BACLOFEN 20 MG TABLET PO SCH ×2 (10:54→21:28)
[2017-11-06] MEDS: NALOXEGOL 12.5 MG TABLET PO SCH (10:55)
[2017-11-06] MEDS: MAGNESIUM SULFATE 1gm PREMIX 1 GM/100 ML BAG IV SCH ×2 (11:40→12:57)
--- NOTE | 2017-11-06 11:49 | Internal Med Progress Note ---
Internal Medicine Subjective Patient seen and examined in the ICU. Parents are at the bedside. Questions answered. Patient is much improved today. She is more awake and conversant. She is answering questions much better today and is more alert. I discussed her labs and condition with her parents and I will transfer her to the medical floor today. We will also start bladder training and advance her diet. She denies chest pain and her breathing is much better. Exam Vital Signs: Temperature 99.2 F 11/06/17 10:15 Pulse Rate 106 H 11/06/17 10:15 Respiratory Rate 25 H 11/06/17 10:15 Blood Pressure 125/74 11/06/17 10:00 Pulse Oximetry 94 11/06/17 10:15 Telemetry Rhythm: Sinus Tachycardia Height/Weight/BMI: Height 4 ft 10 in Weight 63.5 kg Body Mass Index 30.3 - Constitutional Present: mild distress, obese, cooperative - Routine HEENT Exam Head: Present: normocephalic, atraumatic Eye: Present: EOMI, PERRL, conjunctivae pink. Absent: conjunctival icterus, scleral injection ENT: Present: mucous membranes moist, oropharynx clear, nares patent - Routine Neck Exam Present: supple. Absent: JVD, carotid bruit - Routine Chest/Breast/Axilla Exam Chest wall: Absent: tenderness Axillae: Absent: lymphadenopathy - Routine Respiratory Exam Present: rhonchi. Absent: accessory muscle use, rales, wheezes - Routine Cardiovascular Exam Present: tachycardia. Absent: S3, S4 - Routine Abdominal Exam Present: soft, normoactive bowel sounds, distended (mild). Absent: non tender - Routine Extremities Exam Absent: cyanosis, clubbing - Routine Skin Exam Present: intact. Absent: cyanosis, erythema, pallor, mottling, petechiae, urticaria, jaundice - Routine Neurological Exam Present: alert, oriented X3, CN II-XII intact - Routine Psychiatric Exam Present: cooperative. Absent: depressed, anxious Internal Medicine Results - Labs CBC & Chem 7: 11/06/17 03:59 11/06/17 03:59 Labs: Short CBC 11/06/17 Range/Units 03:59 WBC 8.1 (4.5-11.0) T/MM3 Hgb 8.9 L (12-16) GM/DL Hct 28.3 L (36-46) % Plt Count 143 (130-400) T/MM3 BMP 11/06/17 03:59 Sodium 152 H Potassium 3.0 L Chloride 107 Carbon Dioxide 32 H BUN 17.0 Creatinine 0.7 Glucose 127 H Calcium 8.4 Liver Function 11/06/17 Range/Units 03:59 Total Bilirubin 0.80 (0.20-1.30) MG/DL AST 33 (14-36) U/L ALT 22 (1-35) U/L Alkaline Phosphatase 80 (38-126) U/L Albumin 3.5 (3.5-5.0) g/dL Progress Note-A&P - Time Spent With Patient Total time spent is greater than 50% in coordination of care (as documented) at patient's floor/unit and/or counseling patient: 25 - 35 minutes (1) Septic shock Status: Resolved Current Visit: Yes (2) Bacteremia, escherichia coli Status: Acute Assessment and plan: Escherichia coli sensitive to Levaquin. Current Visit: Yes (3) Hydronephrosis Status: Resolved Current Visit: Yes (4) Renal calculus Status: Acute Current Visit: Yes (5) Mental status change Status: Acute Current Visit: Yes (6) Elevated liver enzymes Status: Acute Current Visit: Yes (7) Metabolic acidosis with increased anion gap and accumulation of organic acids Status: Resolved Current Visit: Yes (8) Seizure disorder Status: Chronic Current Visit: Yes (9) Cerebral palsy Status: Chronic Current Visit: Yes - Assessment and Plan Patient is improving nicely. I will transfer her to the medical floor. She still has a ureteral stents in place due to her renal calculus. She will follow- up with Dr. radha justin on discharge and have a lithotripsy. After that point when she has passed the kidney stones the ureteral stent will be removed. She needs to complete her course of antibiotics and increase her activity and diet. Possible discharge in the next few days. Hospital Course Summary Disclaimer: The visit summary below is not to be considered part of the above Progress Note.
[2017-11-06] MEDS: NAPROXEN 500 MG TABLET PO PRN ×2 (14:05→21:39)
[2017-11-06] MEDS: LEVOFLOXACIN PB 750 MG/150 ML BAG IV SCH (17:02)
[2017-11-06] MEDS: D5-1/2NS with KCL 20mEq 1,000 ML IV SCH (17:03)
[2017-11-06] MEDS: QUETIAPINE 50 MG TABLET PO SCH (21:28)
[2017-11-06] MEDS: DIVALPROEX 500 MG TABLET PO SCH (21:28)
[2017-11-06] MEDS: SALINE FLUSH 10ml SYRINGE IVF PRN (21:29)
[2017-11-07] MEDS: D5-1/2NS with KCL 20mEq 1,000 ML IV SCH ×3 (06:19→21:35)
[2017-11-07] MEDS: ALBUTEROL/IPRATROPIUM 2.5mg-0.5mg/3ml NEB AEROSOL SCH ×3 (06:31→16:07)
[2017-11-07] MEDS: OMEPRAZOLE 20 MG CAPSULE PO SCH (09:03)
[2017-11-07] MEDS: BACLOFEN 20 MG TABLET PO SCH ×2 (09:03→21:07)
[2017-11-07] MEDS: LEVETIRACETAM 500 MG TABLET PO SCH ×2 (09:03→21:08)
[2017-11-07] MEDS: SERTRALINE 100 MG TABLET PO SCH (09:04)
[2017-11-07] MEDS: LEVOTHYROXINE 75 MCG TABLET PO SCH (09:05)
[2017-11-07] MEDS: LACOSAMIDE 100mg TABLET PO SCH ×2 (09:05→21:08)
[2017-11-07] MEDS: NAPROXEN 500 MG TABLET PO PRN ×2 (09:11→21:07)
--- NOTE | 2017-11-07 15:22 | Internal Med Progress Note ---
Internal Medicine Subjective Patient seen and examined in the ICU. Parents are at the bedside. Questions answered. Much improved again today. She is awake, alert, conversant. I discussed her care and her diagnosis and prognosis with her parents and they understand. She is not having any chest pain or shortness of breath today. He is little more emotional than usual. Exam Vital Signs: Temperature 96.8 F 11/07/17 12:00 Pulse Rate 98 11/07/17 12:00 Respiratory Rate 20 11/07/17 12:00 Blood Pressure 140/85 H 11/07/17 12:00 Pulse Oximetry 97 11/07/17 12:00 Telemetry Rhythm: Sinus Rhythm Height/Weight/BMI: Height 4 ft 10 in Weight 67.2 kg Body Mass Index 30.3 - Constitutional Present: no acute distress, cooperative - Routine HEENT Exam Head: Present: normocephalic, atraumatic Eye: Present: EOMI, PERRL. Absent: conjunctival icterus, scleral injection ENT: Present: mucous membranes moist, oropharynx clear, nares patent - Routine Neck Exam Present: supple. Absent: JVD, carotid bruit - Routine Chest/Breast/Axilla Exam Chest wall: Absent: tenderness Axillae: Absent: lymphadenopathy - Routine Respiratory Exam Present: wheezes (left expiratory). Absent: accessory muscle use - Routine Cardiovascular Exam Present: RRR. Absent: S3, S4 - Routine Abdominal Exam Present: soft, normoactive bowel sounds, distended (mildly). Absent: firm, rigid - Routine Extremities Exam Absent: cyanosis, clubbing, edema - Routine Skin Exam Absent: erythema, mottling, petechiae, jaundice - Routine Neurological Exam Present: alert, oriented X3, CN II-XII intact. Absent: tremors - Routine Psychiatric Exam Present: normal affect, normal thought process. Absent: depressed, anxious Internal Medicine Results - Labs CBC & Chem 7: 11/07/17 04:21 11/07/17 04:21 Labs: Short CBC 11/07/17 Range/Units 04:21 WBC 7.6 (4.5-11.0) T/MM3 Hgb 8.5 L (12-16) GM/DL Hct 28.2 L (36-46) % Plt Count 169 (130-400) T/MM3 BMP 11/07/17 04:21 Sodium 151 H Potassium 3.6 D Chloride 107 Carbon Dioxide 31 H BUN 16.0 Creatinine 0.7 Glucose 100 Calcium 8.4 Liver Function 11/07/17 Range/Units 04:21 Total Bilirubin 0.60 (0.20-1.30) MG/DL AST 30 (14-36) U/L ALT 21 (1-35) U/L Alkaline Phosphatase 78 (38-126) U/L Albumin 3.3 L (3.5-5.0) g/dL Progress Note-A&P - Time Spent With Patient Total time spent is greater than 50% in coordination of care (as documented) at patient's floor/unit and/or counseling patient: 25 - 35 minutes (1) Septic shock Status: Resolved Current Visit: Yes (2) Bacteremia, escherichia coli Status: Acute Assessment and plan: Escherichia coli sensitive to Levaquin. Current Visit: Yes (3) Hydronephrosis Status: Resolved Current Visit: Yes (4) Renal calculus Status: Acute Current Visit: Yes (5) Mental status change Status: Acute Current Visit: Yes (6) Elevated liver enzymes Status: Acute Current Visit: Yes (7) Metabolic acidosis with increased anion gap and accumulation of organic acids Status: Resolved Current Visit: Yes (8) Seizure disorder Status: Chronic Current Visit: Yes (9) Cerebral palsy Status: Chronic Current Visit: Yes (10) Microcytic anemia Status: Acute Current Visit: Yes - Assessment and Plan We will discontinue her Jacobsen catheter and have them practice everything they do for her care at home. Additionally, I will check her iron studies due to her microcytic anemia. I'm expecting to discharge her home tomorrow. Hospital Course Summary Disclaimer: The visit summary below is not to be considered part of the above Progress Note.
[2017-11-07] MEDS ORDERED: ALBUTEROL/IPRATROPIUM 2.5mg-0.5mg/3ml NEB AEROSOL PRN (16:06)
[2017-11-07] MEDS: LEVOFLOXACIN PB 750 MG/150 ML BAG IV SCH (18:28)
[2017-11-07] MEDS: QUETIAPINE 50 MG TABLET PO SCH (21:08)
[2017-11-07] MEDS: DIVALPROEX 500 MG TABLET PO SCH (21:10)
[2017-11-08 07:49] VITALS: O2SAT 95
[2017-11-08] MEDS: D5-1/2NS with KCL 20mEq 1,000 ML IV SCH (09:02)
[2017-11-08] MEDS: LEVOTHYROXINE 75 MCG TABLET PO SCH (09:04)
[2017-11-08] MEDS: OMEPRAZOLE 20 MG CAPSULE PO SCH (09:04)
[2017-11-08] MEDS: SERTRALINE 100 MG TABLET PO SCH (09:05)
[2017-11-08] MEDS: LEVETIRACETAM 500 MG TABLET PO SCH (09:05)
[2017-11-08] MEDS: BACLOFEN 20 MG TABLET PO SCH (09:05)
[2017-11-08] MEDS: LACOSAMIDE 100mg TABLET PO SCH (09:05)
[2017-11-08] MEDS: NAPROXEN 500 MG TABLET PO PRN (09:09)
--- NOTE | 2017-11-08 16:27 | Discharge Summary ---
Discharge Information Date of admission: 11/02/17 17:31 Anticipated date of discharge: 11/08/17 Attending Physician: Chuck Reyes DO Primary care physician: Chuck Reyes DO Consults: 11/02/17 17:21 Physician Consult [CONS] Routine Consulting Provider: Alex Hartmann Reason For Exam: 9 mm left obstructing stone Ordering Provider has Notified Environmental Field Team Member: Yes - Discharge Diagnosis (1) Septic shock Status: Resolved (2) Bacteremia, escherichia coli Status: Acute (3) Hydronephrosis Status: Resolved (4) Renal calculus Status: Acute (5) Mental status change Status: Resolved (6) Elevated liver enzymes Status: Resolved (7) Metabolic acidosis with increased anion gap and accumulation of organic acids Status: Resolved (8) Seizure disorder Status: Chronic (9) Cerebral palsy Status: Chronic (10) Microcytic anemia Status: Acute - Laboratory Labs: 11/08/17 04:18 11/08/17 04:18 - Microbiology Microbiology 11/02/17 14:30 Peripheral/Iv Start Gram Stain - Final 11/02/17 14:30 Peripheral/Iv Start Blood Culture - Final Escherichia coli 11/03/17 08:00 Kidney, Left Gram Stain - Final 11/03/17 08:00 Kidney, Left Surgical Culture - Final Escherichia coli 11/02/17 14:34 Peripheral/Iv Start Gram Stain - Final 11/02/17 14:34 Peripheral/Iv Start Blood Culture - Final Escherichia coli 11/02/17 14:39 Urine, Cath Straight Urine Culture - Final Escherichia coli History of Present Illness HPI: Leti is very pleasant 37-year-old white female with cerebral palsy. She lives at home with her parents and they function as her caregivers. Her father indicates that over the weekend she had a few episodes of dry heaves and abdominal cramping possibly consistent with gastroenteritis. However, this morning she was sitting at her computer and complained of sudden back pain. She wanted to lay down and her father helped her lie down and he went to massage her back where she said she hurt. At that point she had sudden and severe back pain. She was unable to respond verbally at that point and he called 911 and they transferred her to the ER. Upon arrival her temperature was greater than 103, her white count was below 2, she was in a significant metabolic acidosis with an elevated lactic acid level. Her blood pressure did drop to 86/63 at one point. She was given IV fluid bolus and started on cefepime 1 g IV. Urology was consulted, and she was admitted to the ICU. Hospital Course This is a general summary of the patient's hospital course. For more details refer to the complete medical record. Time spent with patient: 25 - 35 minutes Resuscitation Status: Full Code Discharge Plan - Med Rec/Dispo Referrals/Follow Up: Chuck Reyes DO [Primary Care Provider] - 11/15/17 10:00 am Alex Hartmann MD [Physician] - [place] Instructions: Aspiration Pneumonia (GEN), Sepsis (GEN) Prescriptions: New Ferrous Sulfate [Slow Fe] 142 mg PO BIDWM #60 tablet.er Levofloxacin Pb [Levaquin 750 mg Premix] 750 mg PO Q24H #3 tab Continue Divalproex Sodium [Depakote] 500 mg PO HS #4.5 Quetiapine [Seroquel] 50 mg PO HS Niacin [Niacin ER] 1,000 mg PO WS Lacosamide [Vimpat] 200 mg PO BID Omeprazole 40 mg PO QAM Baclofen [Lioresal] 20 mg PO HS Sertraline [Zoloft] 200 mg PO QAM Baclofen [Lioresal] 40 mg PO QAM Naproxen 500 mg PO BID Psyllium Husk [Fiber Laxative] 0.52 gm PO BID LORazepam [Ativan] 1 mg PO TID PRN PRN Reason: Seizures Levothyroxine Tab [Synthroid] 75 mcg PO DAILY #0 Fenofibrate [Lipofen] 150 mg PO WS #1 cap levETIRAcetam [Keppra] 2,000 mg PO BID Loratadine [Claritin] 10 mg PO QAM - Disposition 01 Discharged Home, Self-Care - Dismissal Complete Discharge Instructions are:: Complete
[2017-11-08 17:06] VITALS: BP 165/105; PULSE 95; RESP 18
[2017-11-08 17:15] VITALS: TEMP 98.2
[2017-11-08] MEDS: LEVOFLOXACIN PB 750 MG/150 ML BAG IV SCH (17:58)
== END 2017-11-08 17:40 | disposition home or self-care (01) | DRG 871 ==
LOC: ED 14:00 → EDHOLD 17:31 → CCU 18:00 → MED 11-06 14:49
PROVIDERS: ADMIT Internal Medicine; ATTEND Internal Medicine